=== PATIENT | male | born 1950 | race Caucasian/White ===

== ENCOUNTER 2019-05-11 07:32 | Day surgery (SDC) | payer BC ==
[~2019-05-11] VITALS: Ht 177.8 cm; Wt 93.2 kg
[~2019-05-11 07:32] MED LIST: CLOP75 PO; ESOM20; ESOM20 PO; LISI5 PO; LORA1 PO; LOSA50 PO; METO25ER PO; OMEP20ER PO
[2019-05-11] MEDS ORDERED: OMEPRAZOLE20 M2 (08:06)
--- NOTE | 2019-05-11 09:58 | NUR ---
05/11/19 0958 Shannon Ramon PATIENT REFUSED MULTIPLE OFFERS OF PO FLUIDS.
== END 2019-05-11 09:58 | disposition home or self-care (01) ==
LOC: ORSCSDS 07:32
PROVIDERS: Internal Medicine Gastroenterology
PROC: 0DBN8ZX Excision of Sigmoid Colon, Via Natural or Artificial Opening Endoscopic, Diagnostic (ICD-10-PCS; principal; 2019-05-11 09:00)
PROC: 0DBK8ZX Excision of Ascending Colon, Via Natural or Artificial Opening Endoscopic, Diagnostic (ICD-10-PCS; principal; 2019-05-11 09:00)
DX: Z12.11 Encounter for screening for malignant neoplasm of colon (principal); D12.2 Benign neoplasm of ascending colon; D12.5 Benign neoplasm of sigmoid colon; K57.30 Diverticulosis of large intestine without perforation or abscess without bleeding; Z86.010 Personal history of colon polyps; Z80.0 Family history of malignant neoplasm of digestive organs; G47.33 Obstructive sleep apnea (adult) (pediatric); I10 Essential (primary) hypertension; Z86.73 Personal history of transient ischemic attack (TIA), and cerebral infarction without residual deficits; Z79.899 Other long term (current) drug therapy; Z87.891 Personal history of nicotine dependence
CPT/HCPCS: 88305; J0330; J0461; J2405; J2704; J7120

== ENCOUNTER → 2021-05-01 | Outpatient (CLI) | payer MEDICARE, BC ==
[~2021-05-01] MED LIST changes: +OMEPRAZOLE20 M2
== END | disposition home or self-care (01) ==
LOC: LAB SHORT 15:55
DX: L02.31 Cutaneous abscess of buttock (principal)
CPT/HCPCS: 87070; 87075; 87077; 87147; 87186; 87205

== ENCOUNTER → 2022-05-30 | Outpatient (CLI) | payer OTHER | END | disposition home or self-care (01) | LOC: PLD 14:28 → LAB SHORT 14:28 | DX: C44.212 Basal cell carcinoma of skin of right ear and external auricular canal (principal); D04.5 Carcinoma in situ of skin of trunk; L82.1 Other seborrheic keratosis | CPT/HCPCS: 88305 ==

== ENCOUNTER → 2022-09-20 | Outpatient (CLI) | payer OTHER | END | disposition home or self-care (01) | LOC: LAB 16:30 → LAB SHORT 16:30 | DX: A49.9 Bacterial infection, unspecified (principal); J34.0 Abscess, furuncle and carbuncle of nose | CPT/HCPCS: 87070; 87077; 87186 ==

== ENCOUNTER 2024-08-31 10:09 | Day surgery (SDC) | payer OTHER ==
[~2024-08-31] VITALS: Ht 177.8 cm; Wt 83.5 kg
[~2024-08-31 10:09] MED LIST changes: +ATOR40TA PO; +DUTA.5 PO; +Lactated Ringer's 1,000 ML IV ONE; +METF500 PO; +PANT20 PO; +SERT100 PO; +TAMS.4ER PO; +TIZA4 PO; +ZOLP10 PO; +propofoL 50 ML IV ONE
[2024-08-31] MEDS ORDERED: FEROSUL325 M1 (11:29)
[2024-08-31] MEDS ORDERED: Lactated Ringer's 1,000 ML IV ONE ×2 (11:57)
[2024-08-31 14:23] VITALS: BP 138/76
--- NOTE | 2024-08-31 14:30 | NUR ---
08/31/24 1430 April Rodriguez NOTED HR BETWEEN 76-55 IN SDU. HR NOTED TO CYCLE UP AND DOWN PERIODICALLY WITHIN A 2 MINUTE FRAME. HR DID NOT APPEAR TO SWITCH BETWEEN HIGH AND LOW HEART RATE (AFIB LIKE), MORE APPEARED TO SLOWLY CYCLE DOWN FROM MID 70S SLOWLY DOWN TO MID 50S, AND NOTED TO SLOWLY CYCLE BACK UP TO MID 70S. CONSULTED DR. POLK, EXPLAINED HEART RATE FLUCTUATION. DR. POLK STATED WITHIN NORMAL LIMITS. PT DENIED SYMPTOMS OF SHORTNESS OF BREATH OR DIZZINESS, PT UNAWARE HR FLUCTUATION. NO TREATMENT REQUIRED.
== END 2024-08-31 14:32 | disposition home or self-care (01) ==
LOC: ORSCSDS 10:09
PROVIDERS: Internal Medicine Gastroenterology
PROC: 0DBK8ZX Excision of Ascending Colon, Via Natural or Artificial Opening Endoscopic, Diagnostic (ICD-10-PCS; principal; 2024-08-31 11:45)
PROC: 0DBH8ZZ Excision of Cecum, Via Natural or Artificial Opening Endoscopic (ICD-10-PCS; principal; 2024-08-31 11:45)
DX: Z12.11 Encounter for screening for malignant neoplasm of colon (principal); Z86.0101 Personal history of adenomatous and serrated colon polyps; K63.5 Polyp of colon; K55.20 Angiodysplasia of colon without hemorrhage; K57.30 Diverticulosis of large intestine without perforation or abscess without bleeding; Z86.73 Personal history of transient ischemic attack (TIA), and cerebral infarction without residual deficits; Z87.891 Personal history of nicotine dependence; Z79.899 Other long term (current) drug therapy
CPT/HCPCS: 82947; 88305; J2704; J7120

== ENCOUNTER → 2024-11-18 | Outpatient (CLI) | payer OTHER ==
[~2024-11-18] MED LIST changes: +FEROSUL325 M1; -Lactated Ringer's 1,000 ML IV ONE; -propofoL 50 ML IV ONE
[2024-11-19 13:04] LABS: Stool Occult Bld Immuno 1 Negative (NEGATIVE); Stool Occult Bld Immuno 2 Negative (NEGATIVE); Stool Occult Bld Immuno 3 Negative (NEGATIVE)
== END | disposition home or self-care (01) ==
LOC: LAB 11:30 → LAB SHORT 11:30
PROVIDERS: Physician Assistant
DX: K92.1 Melena (principal)
CPT/HCPCS: 82274

== ENCOUNTER → 2025-02-19 | Outpatient (CLI) | payer OTHER ==
[2025-02-19 12:14] LABS: Source, Urine Clean Catch
[2025-02-19 12:19] LABS: Color, Urine Yellow (P-Yellow)
[2025-02-19 12:20] LABS: Bilirubin, Urine Neg (Neg); Glucose Qualitative, Urine Neg (Normal); Ketones, Urine Neg (Neg); Leukocyte Esterase, Urine Neg (Neg); Protein, Urine Neg (Neg); Specific Gravity, Urine 1.020 (1.003-1.022); Urobilinogen, Urine NORM (Normal)
== END ==
LOC: LAB 12:13 → LAB SHORT 12:13
PROVIDERS: Physician Assistant
DX: R35.0 Frequency of micturition (principal)
CPT/HCPCS: 81003